=== PATIENT | male | born 1955 | race Caucasian/White ===

== ENCOUNTER 2020-10-27 13:57 | Inpatient (IN) | payer MEDICARE, SELFPAY ==
[2020-10-27 14:29] VITALS: BP 183/103; PULSE 108; RESP 18; TEMP 36.7; O2SAT 96; BMI 25.8
--- NOTE | 2020-10-27 14:46 | CT_ITS ---
WS: [id number] CT ABDOMEN AND PELVIS WITH CONTRAST HISTORY: LLQ pain, vomiting diarrhea TECHNIQUE: Imaging performed of the abdomen and pelvis with IV contrast. Single phase imaging of the abdomen. Coronal and sagittal reformats are submitted. All CT scans at [facility] use at least one of these dose optimization techniques: automated exposure control; mA and/or kV adjustment per patient size (includes targeted exams where dose is matched to clinical indication); or iterativ e reconstruction. IV CONTRAST: Omnipaque 300; 95 mL IV. Oral contrast: No DLP: 1419.81 mGy.cm COMPARISON: None available. Lower thorax: Interstitial fibrotic disease at the lung bases. Heart is normal size. Small hiatal her luz maria. Liver/biliary system: Mild hepatic steatosis and hepatomegaly with granulomata. Portal vein is patent . Gallbladder: Status post cholecystectomy. Pancreas: Mild enlargement and haziness of the pancreas. Focal areas of decreased attenuation within the body of the pancreas extends over a length of 3.2 cm x 1.7 cm. Common bile duct at pancreatic hea d is top normal size. There is mild edema and wall thickening of the duodenum adjacent to the pancrea tic head. Spleen: Normal size spleen with several granulomata. Adrenal glands: Normal. Right kidney: Exophytic cyst from the upper pole measures 11 mm. Focal scar in the lower pole. No obs truction. Left kidney: No obstruction. Exophytic 10 mm cyst from the lower pole. Aorta: Marked atherosclerosis with no aneurysm. Calcifications continue into the iliac arteries. Lymphadenopathy: None. Free fluid: None. GI tract: Mild thickening of the stomach wall may be due to gastritis. There is additional increased fluid in the antrum of the stomach and duodenum. Mild hyperemia involving the duodenum. No obstructiv e pattern. Distal colonic diverticula without acute diverticulitis. Anastomotic sutures at the sigmoi d with no mass. No evidence for appendicitis. Mild increased amount of fluid within the distal small bowel. Abdominal wall: Unremarkable abdominal wall. No hernia. Pelvis: Normally distended urinary bladder. No free fluid in the pelvis. Bones: L5 anterolisthesis by 15 mm. Pars defect noted on the LEFT. CT/CT abdomen pelvis w con* [id number] IMPRESSION: 1. Findings of acute pancreatitis. No abscess. 2. Low-attenuation area in the pancreatic body and tail measures 3.2 x 1.7 cm. This may be an intrapancreatic pseudocyst or neoplasm or edema. Recommend shor t-term follow-up after treatment for pancreatitis. 3. Gastritis. 4. Increase fluid in the distal stomach and small bowel with hyperemia of the mucosa. May be duodenitis secondary to the adjacent pancreatitis. 5. Prior cholecystectomy. 6. No bile duct dilatation.
[2020-10-27 15:18] LABS: Basophils % 0.1 %; Eosinophils % 0.1 %; Hematocrit 46.9 % (42.0-52.0); Hemoglobin 16.6 g/dL (11.7-16.6); Lymphocytes # 0.6 10^3/uL (0.8-4.8); Lymphocytes % 6.7 %; Mean Corpuscular HGB Conc 35.4 g/dL (30.0-36.0); Mean Corpuscular Hemoglobin 33.2 pg (28.0-34.0); Mean Corpuscular Volume 93.8 fL (80-94); Mean Platelet Volume 8.7 fL (7.4-10.4); Monocytes # 1.4 10^3/uL (0.2-0.9); Monocytes % 15.1 %; Neutrophils # 6.88 10^3/uL (1.8-7.7); Neutrophils % 77.2 %; Nucleated Red Blood Cells % 0 %; Platelet Count 164 10^3/cmm (130-400); Red Cell Distribution Width 14.6 % (12.1-15.1); White Blood Count 8.9 10^3/uL (4.0-10.0)
[2020-10-27 15:44] LABS: Alanine Aminotransferase 85 U/L (0-41); Albumin Level 4.4 g/dL (3.5-5.2); Alkaline Phosphatase 129 IU/L (40-130); Anion Gap 18.8 (5-19); Aspartate Amino Transferase 70 U/L (0-40); Blood Urea Nitrogen 8 mg/dL (8-23); Calcium 9.6 mg/dL (8.5-10.5); Carbon Dioxide 23 mmol/L (22-29); Chloride 88 mmol/L (98-107); Globulin 3.5 g/dL (1.3-4.6); Glomerular Filtration Rate 134.8 mL/min (90-130); Glucose 108 mg/dL (65-115); Osmolality Calculated 261 mOsm/kg (285-295); Potassium 3.8 mmol/L (3.5-5.1); Sodium 126 mmol/L (136-145); Total Bilirubin 1.2 mg/dL (0.15-1.2); Total Protein 7.9 g/dL (6.6-8.7)
[2020-10-27] MEDS: ondansetron 2 mg/ML SDV 2 mL 4 MG IVP (15:50)
--- NOTE | 2020-10-27 15:50 | ED_ITS ---
HPI - Abdominal Pain General: Chief Complaint: Abdominal Pain Stated Complaint: ABD PAIN Time Seen by Provider: 10/27/20 14:41 History of Present Illness: HPI narrative: 55-year-old male who presents with abdominal pain midepigastric and bilateral upper quadrant that started last night. Its a colicky sharp pain with no radiation is associated with some nausea little bit of vomiting mild loose stools last drank alcohol last night and has a history of pancreatitis. He denies any chest pain or shortness of breath. Denies any black dark or bloody stools denies any recent fevers or chills Review of Systems Narrative: General: denies fatigue, fever or chills HEENT: denies ear pain, denies nasal congestion, denies vision changes, denies sore throat Neck: denies masses or pain Resp: denies cough, denies shortness of breath, denies pleuritic pain Cardio: denies chest pain, denies edema GI: ++ abdominal pain, + N/V/D, denies black/tarry or bloody stools : denies hematuria, denies dysuria Neuro: denies headache, denies dizziness, denies motor or sensory changes Musculoskeletal: denies pain, denies swelling Skin: denies rashes Psych: denies SI or HI Endocrine: denies thyroid symptoms, denies lymphadenopathy all over ROS reviewed and patient denies Physical Exam Narrative: EXAM NARRATIVE: General: a/o/3, no distress Head: atraumatic HEENT: normal eyes, normal conjunctiva, normal hearing, normal external nose, normal mouth, mucous membranes moist Neck: FROM, trachea midline Chest: normal expansion, no gross deformities Resp: normal speech, no retractions, no accessory muscle use, CTA bilaterally Cardio: regular rate and rhythm and no murmur, no peripheral edema, normal peripheral pulses GI: soft, mid upper and mid abdomimnal tender, no guarding normal BS : deferred Musculoskeletal: FROM, no pain or gross deformities Neuro: a/o appropriate for age, no gross motor or sensory deficitys, CN II-XII grossly intact, normal coordination, normal speech Skin: no rashes Psych: cooperative, normal mood and effect Course Vital Signs: Vital signs: Vital Signs Temperature 98.0 F 10/27/20 14:29 Pulse Rate 96 10/27/20 18:04 Respiratory Rate 18 10/27/20 18:04 Blood Pressure 171/96 10/27/20 18:04 Pulse Oximetry 93 10/27/20 18:04 MDM - Abdominal Pain MDM Narrative: Medical decision making narrative: We will check laboratory work as well as a CT scan to see if he has any evidence of pancreatitis and/or ileus or gastroenteritis Patient has an elevated lipase as well as findings on his CT scan he has had persistent pain in the emergency department his sodium is also at the lower end. Lipase is elevated work and I have to admit him for pancreatitis fluid hydration and pain control accepts the patient for admission to the hospital Differential Diagnosis: Differential diagnosis abdominal pain: Likely abdominal pain, acute appendicitis, pancreatitis and small bowel obstruction Medical Records: Attestation: I reviewed the patient's medical records. Lab Data: Attestation: I reviewed the patient's lab results. Labs: Lab Results 10/27/20 10/27/20 Range/Units 15:00 15:00 WBC 8.9 (4.0-10.0) 10^3/ uL RBC 5.00 (4.1-5.3) 10^6/u L Hgb 16.6 (11.7-16.6) g/dL Hct 46.9 (42.0-52.0) % MCV 93.8 (80-94) fL MCH 33.2 (28.0-34.0) pg MCHC 35.4 (30.0-36.0) g/dL RDW 14.6 (12.1-15.1) % Plt Count 164 (130-400) 10^3/c mm MPV 8.7 (7.4-10.4) fL Neut % (Auto) 77.2 % Lymph % (Auto) 6.7 % Mcdonald % (Auto) 15.1 % Eos % (Auto) 0.1 % Baso % (Auto) 0.1 % Neut # (Auto) 6.88 (1.8-7.7) 10^3/u L Lymph # (Auto) 0.6 L (0.8-4.8) 10^3/u L Mcdonald # (Auto) 1.4 H (0.2-0.9) 10^3/u L Eos # (Auto) 0.0 (0.0-0.8) 10^3/u L Baso # (Auto) 0.0 (0.0-0.1) 10^3/u L Nucleated RBC % (a uto) 0 % Nucleated RBCs # 0.0 /100WBC Sodium 126 L (136-145) mmol/L Potassium 3.8 (3.5-5.1) mmol/L Chloride 88 L (98-107) mmol/L Carbon Dioxide 23 (22-29) mmol/L Anion Gap 18.8 (5-19) BUN 8 (8-23) mg/dL Creatinine 0.6 L (0.7-1.2) mg/dL GFR Calculation 134.8 H (90-130) mL/min Glucose 108 (65-115) mg/dL Calculated Osmolal ity 261 L (285-295) mOsm/k g Calcium 9.6 (8.5-10.5) mg/dL Total Bilirubin 1.2 (0.15-1.2) mg/dL AST 70 H (0-40) U/L ALT 85 H (0-41) U/L Alkaline Phosphata se 129 (40-130) IU/L Total Protein 7.9 (6.6-8.7) g/dL Albumin 4.4 (3.5-5.2) g/dL Globulin 3.5 (1.3-4.6) g/dL Lipase 1086 H (13-60) U/L Discharge Plan Discharge Patient Disposition: Placed in Observation Admit Provider: Sangeeta Nguyen Clinical Impression: Pancreatitis Qualifiers: Chronicity: acute Acute pancreatitis complication: unspecified Coding Level of Care Code ED Flat Grinder Operator for Enzo Mondragon
[2020-10-27 15:51] VITALS: RESP 18
[2020-10-27] MEDS: HYDROmorphone 1 mg/mL INJ 1 mL IVP (15:51)
[2020-10-27 15:53] LABS: Lipase 1086 U/L (13-60)
[2020-10-27] MEDS: pantoprazole 40 mg SDV 80 MG IVP (15:54)
[2020-10-27] MEDS: iohexol 300 mg/mL 100 mL Btl IV (15:57)
[2020-10-27] MEDS: sodium chloride 0.9% 1,000 ML 999 ML IV (16:55)
[2020-10-27 17:24] VITALS: BP 165/105; PULSE 95; RESP 18; O2SAT 92
--- NOTE | 2020-10-27 17:53 | PM.HP ---
Providers/Chief Complaint Admitting Physician: Sangeeta Nguyen MD Primary Care Provider: DEANN MCFARLAND ACCOUNT MANAGER EDUCATION Chief Complaint: ABD PAIN History of Present Illness Alex Gallardo is a 65 year old male with gout, alcohol abuse, drinking multiple cans of light beer a day, presented to ER with multiple episodes of emesis and abdominal pain that started last evening, worsened today. Has been drinking more than usual as he has been depressed over last few months from social distancing and not being able to go outdoors due to COVID. Denies any diarrhea. pain is epigastric, 5-6/10 non radiating. No fever. Ct abdomen in the ER with pancreatitis and liapse elevated >1000. Reports pain improved after iv opiates at this time. Review of Systems General: Reports: 10 or more systems reviewed and unremarkable except in HPI and below Const: Denies: fever(s), chills or body aches Eyes: Denies: change in vision, blurry vision or photophobia ENMT: Reports: hoarseness; Denies: throat pain, enlarged tonsils, odynophagia or nasal congestion Card: Denies: chest pain, palpitations, irregular heart rhythm, edema, swelling of feet/ankles, lightheadedness, pre-syncope, dyspnea on exertion or orthopnea Resp: Denies: dyspnea, productive cough, non-productive cough, wheezing, stridor, pain on inspiration, change in phlegm color, hemoptysis or chest congestion GI: Denies: abdominal pain, nausea, vomiting, hematemesis, coffee ground emesis, dysphagia, heartburn, diarrhea, constipation, GI cramping, change in stool character, hematochezia or melena : Denies: flank pain, dysuria, urinary frequency, urinary urgency, urinary hesitancy or hematuria Musc: Denies: neck pain, back pain, extremity pain, joint swelling, joint warmth or deformity Neuro: Denies: headache(s), numbness in extremities, weakness in extremities, sensory changes, difficulty walking, frequent falls, dizziness, vertigo, behavioral changes, Slurred speech present or seizure-like activity Psych: Denies: anxiety, depression, suicidal ideation or homicidal ideation Endo: Denies: polyuria, polydipsia, tired all the time, cold intolerance or hot flashes Baldomero/Lymph: Denies: easy bruising or easy bleeding Medications/Allergies Home Medications Medication Instructions Recorded Confirmed Last Taken Type allopurinol 100 mg PO DAILY 10/27/20 10/27/20 10/26/20 History chlordiazepoxide HCl 10 mg PO TID PRN 10/27/20 10/27/20 Unknown History citalopram 40 mg PO DAILY 10/27/20 10/27/20 10/27/20 History latanoprost 1 drp OPHTHALMIC (EYE) DAILY 10/27/20 10/27/20 10/26/20 History pantoprazole 40 mg PO DAILY 10/27/20 10/27/20 Unknown History Allergies Allergy/AdvReac Type Severity Reaction Status Date / Time bupropion [From Wellbutrin] Allergy ADR-Seizure Verified 10/27/20 14:29 buspirone [From BuSpar] Allergy ALGY-Hives Verified 10/27/20 14:29 PFSH Acute PFSH: Medical History (Updated 10/27/20 @ 18:35 by Sangeeta Nguyen MD) Diverticulitis Gout Surgical History (Updated 10/27/20 @ 18:34 by Sangeeta Nguyen MD) H/O hernia repair History of partial colectomy Social History (Updated 10/27/20 @ 18:34 by Sangeeta Nguyen MD) Smoking and tobacco status: smoker, details unknown Alcohol intake: current Substance/Drug Use: never Lives independently: Yes Vitals/I&O/Wt Last Vital Signs Temp 98.0 F 10/27/20 14:29 Pulse 95 10/27/20 17:24 Resp 18 10/27/20 17:24 BP 165/105 10/27/20 17:24 Pulse Ox 92 10/27/20 17:24 Weight last 48 hrs Weight 81.647 kg Physical Exam Const: COMMON NORMALS: no acute distress, average body habitus, patient oriented x3, no limitations, healthy appearing, alert and well nourished HENMT: COMMON NORMALS: normocephalic and atraumatic HEAD & SCALP: normocephalic and atraumatic Eye: COMMON NORMALS: Equal, round and reactive pupils present, EOMs intact bilaterally, conjunctivae normal and no scleral icterus CONJUNCTIVA: Yes conjunctivae normal PUPIL: Yes Equal, round and reactive pupils present Neck/C-Spine: COMMON NORMALS: no JVD Resp: COMMON NORMALS: normal respiratory effort, No retractions, No use of accessory muscles, clear to auscultation bilaterally and percussion normal AUSCULTATION: clear to auscultation bilaterally PERCUSSION: percussion normal Cardio: COMMON NORMALS: no JVD, regular rate, regular rhythm, S1 normal heart sound present, S2 normal heart sound present, No gallops present (Cardio), No clicks present (Cardio), No murmurs present (Cardio), No rub (Cardio) and Peripheral pulses 2+ throughout RATE: regular rate RHYTHM: regular rhythm HEART SOUNDS: S1 normal heart sound present and S2 normal heart sound present PERIPHERAL PULSES: Peripheral pulses 2+ throughout GI: COMMON NORMALS: Normal to inspection, nondistended, normoactive bowel sounds present, Soft to palpation, non-tender, No hepatosplenomegaly present, no masses and no bruits PALPATION: Yes Soft to palpation and Yes No hepatosplenomegaly present Extremity: COMMON NORMALS: normal to inspection, full ROM, capillary refill normal, no joint enlargement, no clubbing, cyanosis or edema, no calf tenderness and no pedal edema Neuro: COMMON NORMALS: patient oriented x3, CN's II-XII intact bilaterally, moves all extremities, no focal motor deficits, no sensory deficits noted, deep tendon reflexes 2+ bilaterally and gait normal SENSORIUM/ORIENTATION: Yes alert Psych: COMMON NORMALS: mental status grossly normal, Normal thought process present, cooperative, normal affect, speech normal, activity/motor behavior normal, denies hallucinations, denies homicidal ideation and denies suicidal ideation SPEECH: Yes normal speech THOUGHT PROCESS: Normal thought process present Skin: COMMON NORMALS: no rashes or lesions noted, no wounds, turgor normal, no jaundice, no petechiae and no mottling GENERAL SKIN EXAM: no rashes or lesions noted and turgor normal Data : 10/27/20 15:00 10/27/20 15:00 Attestation for Other Data: I personally reviewed and interpreted the following: Other data: Laboratory Results WBC 8.9 10^3/uL (4.0-10.0) 10/27/20 15:00 RBC 5.00 10^6/uL (4.1-5.3) 10/27/20 15:00 Hgb 16.6 g/dL (11.7-16.6) 10/27/20 15:00 Hct 46.9 % (42.0-52.0) 10/27/20 15:00 MCV 93.8 fL (80-94) 10/27/20 15:00 MCH 33.2 pg (28.0-34.0) 10/27/20 15:00 MCHC 35.4 g/dL (30.0-36.0) 10/27/20 15:00 RDW 14.6 % (12.1-15.1) 10/27/20 15:00 Plt Count 164 10^3/cmm (130-400) 10/27/20 15:00 MPV 8.7 fL (7.4-10.4) 10/27/20 15:00 Neut % (Auto) 77.2 % 10/27/20 15:00 Lymph % (Auto) 6.7 % 10/27/20 15:00 [place] % (Auto) 15.1 % 10/27/20 15:00 Eos % (Auto) 0.1 % 10/27/20 15:00 Baso % (Auto) 0.1 % 10/27/20 15:00 Neut # (Auto) 6.88 10^3/uL (1.8-7.7) 10/27/20 15:00 Lymph # (Auto) 0.6 10^3/uL (0.8-4.8) L 10/27/20 15:00 [place] # (Auto) 1.4 10^3/uL (0.2-0.9) H 10/27/20 15:00 Eos # (Auto) 0.0 10^3/uL (0.0-0.8) 10/27/20 15:00 Baso # (Auto) 0.0 10^3/uL (0.0-0.1) 10/27/20 15:00 Nucleated RBC % (auto) 0 % 10/27/20 15:00 Nucleated RBCs # 0.0 /100WBC 10/27/20 15:00 Sodium 126 mmol/L (136-145) L 10/27/20 15:00 Potassium 3.8 mmol/L (3.5-5.1) 10/27/20 15:00 Chloride 88 mmol/L (98-107) L 10/27/20 15:00 Carbon Dioxide 23 mmol/L (22-29) 10/27/20 15:00 Anion Gap 18.8 (5-19) 10/27/20 15:00 BUN 8 mg/dL (8-23) 10/27/20 15:00 Creatinine 0.6 mg/dL (0.7-1.2) L 10/27/20 15:00 GFR Calculation 134.8 mL/min (90-130) H 10/27/20 15:00 Glucose 108 mg/dL (65-115) 10/27/20 15:00 Calculated Osmolality 261 mOsm/kg (285-295) L 10/27/20 15:00 Calcium 9.6 mg/dL (8.5-10.5) 10/27/20 15:00 Total Bilirubin 1.2 mg/dL (0.15-1.2) 10/27/20 15:00 AST 70 U/L (0-40) H 10/27/20 15:00 ALT 85 U/L (0-41) H 10/27/20 15:00 Alkaline Phosphatase 129 IU/L (40-130) 10/27/20 15:00 Total Protein 7.9 g/dL (6.6-8.7) 10/27/20 15:00 Albumin 4.4 g/dL (3.5-5.2) 10/27/20 15:00 Globulin 3.5 g/dL (1.3-4.6) 10/27/20 15:00 Lipase 1086 U/L (13-60) H 10/27/20 15:00 Impressions Abdomen/Pelvis CT 10/27/20 14:46 IMPRESSION: 1. Findings of acute pancreatitis. No abscess. 2. Low-attenuation area in the pancreatic body and tail measures 3.2 x 1.7 cm. This may be an intrapancreatic pseudocyst or neoplasm or edema. Recommend short-term follow-up after treatment for pancreatitis. 3. Gastritis. 4. Increase fluid in the distal stomach and small bowel with hyperemia of the mucosa. May be duodenitis secondary to the adjacent pancreatitis. 5. Prior cholecystectomy. 6. No bile duct dilatation. A&P Assessment and plan (1) Pancreatitis: Acute pancreatitis, likely related to alcohol abuse Check TG to r/o hyperlipidemia induced pancreatitis IVF NS @ 100cc/hr Hyponatremia likelt as a result of dehydration NPO, bowel rest apin control with morphine and toradol alternating Status: Acute Qualifiers: Acute pancreatitis complication: unspecified Chronicity: acute (2) Alcohol abuse: check alcohol level watch for signs of withdrawa CIWA protocol, prn ativan Status: Acute (3) Hypertension: Start amlodipine 5mg po daily, will titrate up as needed Status: Acute Attestations Medical Necessity Statement*: >2midnight anticipated for management of acute pancreatitis, bowel rest, iv hydration , pain management Coding Level of Care Code Acute Asphalt Mixer for [facility] Giancarlo Diagnoses Pancreatitis K85.90 Acute pancreatitis complication: unspecified Chronicity: acute Alcohol abuse F10.10 Hypertension I10
[2020-10-27 18:04] VITALS: BP 171/96; PULSE 96; RESP 18; O2SAT 93
[2020-10-27 18:37] VITALS: BP 169/92; PULSE 91; RESP 18; O2SAT 96
--- NOTE | 2020-10-27 19:13 | ECG_ITS ---
[facility] ED Test Date: 2020-10-27 Pat Name: raleigh stevens Department: Room: 250 Gender: Male Supervisor Furnace Room: : 1955 Requested By: Sangeeta Nguyen Order Number: [id number] Claudio MD: Simran Heck M.D. Measurements Intervals Thermal Rate: 91 P: 53 NV: 156 QRS: 75 QRSD: 141 T: 58 QT: 378 QTc: 465 Interpretive Statements SINUS RHYTHM RIGHT BUNDLE BRANCH BLOCK [120+ ms QRS DURATION, UPRIGHT V1, 40+ ms S IN I/aVL/V4/V5/V6] No previous ECG available for comparison Electronically Signed On 10-28-2020 7:26:58 CDT by Simran Heck M.D. [id number]
--- NOTE | 2020-10-27 19:13 | XRR_ITS ---
PROCEDURE INFORMATION: Exam: XR Chest Exam date and time: 10/27/2020 7:16 PM Age: 65 years old Clinical indication: Cough; Additional info: Evaluate for effusion TECHNIQUE: Imaging protocol: XR of the chest. Views: 1 view. COMPARISON: No relevant prior studies available. FINDINGS: Lungs: Low lung volume is seen in the right hemithorax. Scattered interstitial densities are present in the peripheral aspect of the right lung. No consolidation. Pleural spaces: Unremarkable. No pleural effusion. No pneumothorax. Heart/Mediastinum: Unremarkable. No cardiomegaly. Bones/joints: Unremarkable. XR/XR chest 1V portable [id number] IMPRESSION: 1. Scattered interstitial densities seen in the right lung 2. Low volumes are noted in the right lung 3. Otherwise negative examination
[2020-10-27] MEDS: sodium chlor 0.9% + KCl 20 mEq 20 MEQ/1,000 ML BAG 100 MEQ IV (19:42)
[2020-10-27] MEDS: ketorolac 30 mg/mL INJ 15 MG IVP (19:57)
[2020-10-27 20:00] VITALS: BP 180/97; PULSE 96; RESP 21; TEMP 36.5; O2SAT 94
[2020-10-27] MEDS: enoxaparin 40 mg/0.4 mL Syringe SUBCUT (21:01)
[2020-10-27] MEDS: famotidine 20 mg/2 mL INJ IVP (21:23)
[2020-10-27] MEDS: morphine 4 mg/mL SDV 1 mL 2 MG IVP (22:26)
[2020-10-28] VITALS (9 sets, daily range): BP systolic 124–178; BP diastolic 78–96; PULSE 75–107; RESP 16–22; TEMP 36.4–37.2; O2SAT 93–97
[2020-10-28] MEDS: acetaminophen-codeine 120-12 mg/5 mL UDC 2.5 ML PO (00:16)
[2020-10-28] MEDS: acetaminophen 325 mg Tablet 650 MG PO ×2 (02:59→19:22)
[2020-10-28] MEDS: ketorolac 30 mg/mL INJ 15 MG IVP ×2 (04:10→12:03)
[2020-10-28] MEDS: amlodipine 10 mg Tablet PO (04:48)
[2020-10-28] MEDS: lisinopril 10 mg Tablet PO ×2 (04:48→08:01)
[2020-10-28] MEDS: sodium chlor 0.9% + KCl 20 mEq 20 MEQ/1,000 ML BAG 100 MEQ IV ×3 (04:51→23:33)
[2020-10-28 05:20] LABS: Basophils % 0.2 %; Hematocrit 40.9 % (42.0-52.0); Hemoglobin 14.6 g/dL (11.7-16.6); Lymphocytes # 0.7 10^3/uL (0.8-4.8); Lymphocytes % 7.7 %; Mean Corpuscular HGB Conc 35.7 g/dL (30.0-36.0); Mean Corpuscular Hemoglobin 33.6 pg (28.0-34.0); Mean Platelet Volume 9.1 fL (7.4-10.4); Monocytes # 1.1 10^3/uL (0.2-0.9); Neutrophils # 6.95 10^3/uL (1.8-7.7); Neutrophils % 79.8 %; Nucleated Red Blood Cells % 0 %; Platelet Count 134 10^3/cmm (130-400); Red Blood Count 4.35 10^6/uL (4.1-5.3); Red Cell Distribution Width 14.5 % (12.1-15.1); White Blood Count 8.7 10^3/uL (4.0-10.0)
[2020-10-28 05:46] LABS: Alanine Aminotransferase 57 U/L (0-41); Albumin Level 3.9 g/dL (3.5-5.2); Alkaline Phosphatase 113 IU/L (40-130); Aspartate Amino Transferase 46 U/L (0-40); Blood Urea Nitrogen 6 mg/dL (8-23); Calcium 8.6 mg/dL (8.5-10.5); Carbon Dioxide 22 mmol/L (22-29); Chloride 94 mmol/L (98-107); Globulin 3.3 g/dL (1.3-4.6); Glomerular Filtration Rate 166.4 mL/min (90-130); Glucose 87 mg/dL (65-115); Osmolality Calculated 265 mOsm/kg (285-295); Sodium 129 mmol/L (136-145); Total Bilirubin 0.9 mg/dL (0.15-1.2); Total Protein 7.2 g/dL (6.6-8.7)
[2020-10-28] MEDS: morphine 4 mg/mL SDV 1 mL 2 MG IVP ×2 (07:58→17:04)
[2020-10-28] MEDS: citalopram 20 mg Tablet 40 MG PO (07:58)
[2020-10-28] MEDS: folic acid 1 mg Tablet PO (07:59)
[2020-10-28] MEDS: allopurinol 100 mg Tablet PO (07:59)
[2020-10-28] MEDS: thiamine 100 mg Tablet PO (08:00)
[2020-10-28] MEDS: multivitamin therapeutic Tablet 1 TAB PO (08:01)
[2020-10-28] MEDS: famotidine 20 mg/2 mL INJ IVP (08:02)
[2020-10-28 11:18] LABS: Bilirubin Urine Neg (Negative); Blood Urine Neg (Negative); Glucose Urine UA Norm (Normal); Ketones Urine 1+ (Negative); Leukocyte Esterase Urine Negative (Negative); Nitrate Urine Negative (Negative); Protein Urine Neg (Negative); Specific Gravity, Urine 1.005 (1.005-1.030); Urine Appearance Clear (CLEAR); Urine Color Yellow (Yellow); Urobilinogen Urine Norm (Negative); pH Urine 6.5 (5-7)
[2020-10-28 11:28] LABS: Add Urine Culture? No; Bacteria Urine TRACE /hpf; Hyaline Casts Urine 0-4 /lpf; RBC Urine 0-4 /hpf (0-2); Squamous Epithelial Cell Urine 0-4 /hpf (0-5); WBC Urine 0-4 /hpf (0-5)
--- NOTE | 2020-10-28 13:35 | P.PN_ITS ---
Subjective Subjective: Interval history: abdominal pain and nausea improving today, no current issues with withdrawal Medications: Reviewed: Yes Vitals/I&O/Wt Last Vital Signs Temp 98.8 F 10/28/20 12:00 Pulse 96 10/28/20 12:00 Resp 17 10/28/20 12:00 BP 147/83 10/28/20 12:00 Pulse Ox 95 10/28/20 12:00 10/27/20 10/28/20 10/28/20 22:59 06:59 14:59 Intake Total 1000 / 1000 900 / 1900 720 / 720 Output Total 375 / 375 400 / 775 700 / 700 Balance 625 / 625 500 / 1125 Weight last 48 hrs Weight 81.647 kg Physical Exam Narrative: EXAM NARRATIVE: GEN: Awake, alert and oriented, no acute distress CVS: S1S2 N RS: CTA B/L Abd: Soft, nt/nd , bs+, mild discomfort to palpation PATTERN STORAGE CLERK: no focal neuro deficits Data : 10/28/20 04:40 10/28/20 04:40 A&P Assessment and plan (1) Pancreatitis: Acute pancreatitis, likely related to alcohol abuse Check TG to r/o hyperlipidemia induced pancreatitis, was unable to be done yeseterday LFTs stable IVF NS @ 100cc/hr Hyponatremia likelt as a result of dehydration, improving today Advance diet to clear liquid today pain control with morphine and toradol alternating Status: Acute Qualifiers: Acute pancreatitis complication: unspecified Chronicity: acute (2) Alcohol abuse: watch for signs of withdrawal CIWA protocol, prn ativan Status: Acute (3) Hypertension: increase amlodipine to 10mg daily, SBP 150-160 today Status: Acute Attestations Medical Necessity Statement*: acute pancreatitis, needs IVF, pain management, slowly advancing diet and assess for tolerance Coding Level of Care Code Acute Commissary Representative for Enzo Mondragon Diagnoses Pancreatitis K85.90 Acute pancreatitis complication: unspecified Chronicity: acute Alcohol abuse F10.10 Hypertension I10
[2020-10-28 14:10] LABS: Cholesterol 129 mg/dL (0-200); HDL Cholesterol 86 mg/dL (60-100); LDL Cholesterol Calculated 29 mg/dL (50-129); LDL HDL Ratio 0.34 RATIO (0.00-3.22); Triglycerides 71 mg/dL (0-150)
--- NOTE | 2020-10-28 18:59 | PC.NURSE ---
Report to Kate LANDRY at this time.
[2020-10-28] MEDS: enoxaparin 40 mg/0.4 mL Syringe SUBCUT (20:56)
[2020-10-28] MEDS: famotidine 20 mg Tablet PO (20:56)
[2020-10-29] MEDS: acetaminophen 325 mg Tablet 650 MG PO (01:29)
[2020-10-29 03:09] VITALS: BP 148/78; PULSE 80; RESP 18; TEMP 36.7; O2SAT 94
[2020-10-29 06:25] LABS: Basophils % 0.3 %; Eosinophils % 0.4 %; Hematocrit 37.7 % (42.0-52.0); Hemoglobin 13.1 g/dL (11.7-16.6); Lymphocytes # 1.1 10^3/uL (0.8-4.8); Lymphocytes % 14.1 %; Mean Corpuscular HGB Conc 34.7 g/dL (30.0-36.0); Mean Corpuscular Hemoglobin 33.4 pg (28.0-34.0); Mean Corpuscular Volume 96.2 fL (80-94); Mean Platelet Volume 9.2 fL (7.4-10.4); Monocytes # 0.9 10^3/uL (0.2-0.9); Monocytes % 11.2 %; Neutrophils # 5.84 10^3/uL (1.8-7.7); Neutrophils % 73.6 %; Nucleated Red Blood Cells % 0 %; Platelet Count 157 10^3/cmm (130-400); Red Blood Count 3.92 10^6/uL (4.1-5.3); Red Cell Distribution Width 14.7 % (12.1-15.1); White Blood Count 7.9 10^3/uL (4.0-10.0)
[2020-10-29 06:51] LABS: Alanine Aminotransferase 40 U/L (0-41); Albumin Level 3.2 g/dL (3.5-5.2); Alkaline Phosphatase 97 IU/L (40-130); Anion Gap 15.8 (5-19); Aspartate Amino Transferase 27 U/L (0-40); Blood Urea Nitrogen 4 mg/dL (8-23); Calcium 8.2 mg/dL (8.5-10.5); Carbon Dioxide 22 mmol/L (22-29); Chloride 95 mmol/L (98-107); Globulin 2.9 g/dL (1.3-4.6); Glomerular Filtration Rate 166.4 mL/min (90-130); Glucose 100 mg/dL (65-115); Lipase 106 U/L (13-60); Osmolality Calculated 265 mOsm/kg (285-295); Potassium 3.8 mmol/L (3.5-5.1); Sodium 129 mmol/L (136-145); Total Protein 6.1 g/dL (6.6-8.7)
[2020-10-29 07:33] VITALS: BP 161/88; PULSE 83; RESP 16; TEMP 36.4; O2SAT 92
[2020-10-29] MEDS: thiamine 100 mg Tablet PO (07:52)
[2020-10-29] MEDS: allopurinol 100 mg Tablet PO (07:52)
[2020-10-29] MEDS: citalopram 20 mg Tablet 40 MG PO (07:52)
[2020-10-29] MEDS: famotidine 20 mg Tablet PO (07:52)
[2020-10-29] MEDS: multivitamin therapeutic Tablet 1 TAB PO (07:52)
[2020-10-29] MEDS: amlodipine 10 mg Tablet PO (07:52)
[2020-10-29] MEDS: folic acid 1 mg Tablet PO (07:53)
[2020-10-29] MEDS: sodium chlor 0.9% + KCl 20 mEq 20 MEQ/1,000 ML BAG 100 MEQ IV (09:30)
[2020-10-29 12:00] VITALS: BP 154/88; PULSE 83; RESP 16; TEMP 36.8; O2SAT 96
--- NOTE | 2020-10-29 13:39 | P.DS_ITS ---
Discharge Providers Date of Admission: 10/27/20 16:39 Date of Discharge: October 29, 2020 Attending Provider at Admission: Sangeeta Nguyen MD Attending Provider at Discharge: Sangeeta Nguyen MD Primary Care Provider: DEANN MCFARLAND CNP Diagnoses at Discharge Discharge Diagnosis (1) Pancreatitis: Status: Acute Qualifiers: Acute pancreatitis complication: unspecified Chronicity: acute (2) Alcohol abuse: Status: Acute (3) Hypertension: Status: Acute Reason for Visit Reason for Visit: ABD PAIN Hospital Course Hospital Course Alex Gallardo is a 65 year old male with gout, alcohol abuse, drinking multiple cans of light beer a day, presented to ER with multiple episodes of emesis and abdominal pain that started 1 day prior to presentation. Clinical exam, Ct abdomen in the ER consistent with pancreatitis and liapse elevated >1000. He was managed conservatively with bowel rest, IV fluids, pain control with opiates, he improved over the course of the next 2 days, currently tolerating a GI soft diet at discharge. Lipase trended down to 100. Patient is being discharged today in stable condition. Recommended to refrain from alcohol consumption. Follow-up with primary care provider in 1 week. Physical Exam Narrative: EXAM NARRATIVE: GEN: Awake, alert and oriented, no acute distress CVS: S1S2 N RS: CTA B/L Abd: Soft, nt/nd , bs+ ELECTRICIAN SOUND: no focal neuro deficits Discharge Data Data Completed and Pending: Completed Studies During Hospitalization Category Date Time Status CT abdomen pelvis w con* [id number] Urge nt Cat Scan 10/27/20 14:46 Completed XR chest 1V madeline ble [id number] Routine Exams 10/27/20 19:13 Completed Pending at discharge Category Date Time Status Complete Blood Co unt w/Auto AM LABS Lab 10/30/20 04:00 Ordered Comprehensive Met abolic Panel AM LA BS Lab 10/30/20 04:00 Ordered Labs from last 24 hours 10/29/20 10/29/20 10/28/20 05:31 05:31 04:40 WBC 7.9 RBC 3.92 L Hgb 13.1 Hct 37.7 L MCV 96.2 H MCH 33.4 MCHC 34.7 RDW 14.7 Plt Count 157 MPV 9.2 Neut % (Auto) 73.6 Lymph % (Auto) 14.1 [place] % (Auto) 11.2 Eos % (Auto) 0.4 Baso % (Auto) 0.3 Neut # (Auto) 5.84 Lymph # (Auto) 1.1 [place] # (Auto) 0.9 Eos # (Auto) 0.0 Baso # (Auto) 0.0 Nucleated RBC % (a uto) 0 Nucleated RBCs # 0.0 Sodium 129 L Potassium 3.8 Chloride 95 L Carbon Dioxide 22 Anion Gap 15.8 BUN 4 L Creatinine 0.5 L GFR Calculation 166.4 H Glucose 100 Calculated Osmolal ity 265 L Calcium 8.2 L Total Bilirubin 1.0 AST 27 ALT 40 Alkaline Phosphata se 97 Total Protein 6.1 L Albumin 3.2 L Globulin 2.9 Triglycerides 71 Cholesterol 129 LDL Cholesterol, C alc 29 L HDL Cholesterol 86 LDL/HDL Ratio 0.34 Cholesterol/HDL Ra greg 1.50 Lipase 106 H Vitals: Last Vital Signs Temp 98.2 F 10/29/20 12:00 Pulse 83 10/29/20 12:00 Resp 16 10/29/20 12:00 BP 154/88 10/29/20 12:00 Pulse Ox 96 10/29/20 12:00 Discharge Plan Discharge Patient Disposition: Home Condition: Stable Prescriptions: New amlodipine 10 mg Tablet 10 mg PO DAILY 30 Days Qty: 30 RF: 0 tramadol 50 mg tablet 50 mg PO Q8H PRN (Reason: pain) 7 Days Qty: 20 RF: 0 Percocet 5-325 mg tablet 1 tab PO Q12H PRN (Reason: pain) 7 Days Qty: 14 RF: 0 Continued latanoprost 0.005 % drops 1 drp ophthalmic (eye) DAILY RF: 0 citalopram 40 mg tablet 40 mg PO DAILY RF: 0 allopurinol 100 mg tablet 100 mg PO DAILY RF: 0 pantoprazole 40 mg tablet,delayed release (DR/EC) 40 mg PO DAILY RF: 0 chlordiazepoxide HCl 10 mg capsule 10 mg PO TID PRN (Reason: ALCOHOL WITHDRAWL) RF: 0 Discharge Orders: Discharge Order (Routine); Ordered 10/29/20 Ordered By: Sangeeta Nguyen Patient Instructions: Opioid Safety Discharge Attestations Time Spent in Discharge Care*: other Quality Metrics Clinical Quality Measures During this hospital stay, did patient experience: None Coding Level of Care Code Acute Chg FW DC note Diagnoses Pancreatitis K85.90 Acute pancreatitis complication: unspecified Chronicity: acute Alcohol abuse F10.10 Hypertension I10
[2020-10-29 15:08] VITALS: BP 154/88; PULSE 83; RESP 16; TEMP 36.8; O2SAT 96
--- NOTE | 2020-10-29 15:08 | PC.NURSE ---
Patient ambulated to the nurses station and requested to be discharged. Patient's discharge reviewed with patient by Kenny RG. Patient's IV removed by Alex LANDRY at this time. Patient verbalized understanding. Driving directions provided to the [facility] pharmacy. Patient is A&Ox3. Respirations even and non-labored on room air. Patient ambulated from the Med-Surg floor without difficulty.
--- NOTE | 2020-10-31 18:34 | PC.RESP ---
Smoking Cessation information sent to patient.
== END 2020-10-29 14:50 | disposition home or self-care (01) | DRG 439 ==
LOC: ER 15:05 → MEDSURG 18:04
PROVIDERS: Admitting Provider Student in an Organized Health Care Education/Training Program; Emergency Provider Emergency Medicine; PCP Nurse Practitioner Family; Visit Provider Student in an Organized Health Care Education/Training Program
DX: K85.20 Alcohol induced acute pancreatitis without necrosis or infection (principal); E87.1 Hypo-osmolality and hyponatremia; F10.10 Alcohol abuse, uncomplicated; M10.9 Gout, unspecified; F32.9 Major depressive disorder, single episode, unspecified; Z90.49 Acquired absence of other specified parts of digestive tract; F17.210 Nicotine dependence, cigarettes, uncomplicated; I10 Essential (primary) hypertension; E86.0 Dehydration
CPT/HCPCS: 36415; 71045; 74177; 80053; 80061; 81001; 83690; 85025; 93005; 96361; 96372; 96374; 96375; 99285; C9113; J1170; J1650; J1885; J2270; J2405; J3411; J3490; J7030; Q9967